=== PATIENT | female | born 1965 | race Caucasian/White ===

== ENCOUNTER → 2020-03-26 | Outpatient (CLI) | payer OTHER ==
--- NOTE | 2020-03-26 17:06 | CONS ---
CONSULTATION DATE OF SERVICE: 03/26/2020 This patient is a 54-year-old lady who has been evaluated in [facility] for obstructive sleep apnea-hypopnea syndrome. HISTORY OF PRESENT ILLNESS/SLEEP-WAKE EVALUATION: The patient was diagnosed with obstructive sleep apnea in 2008 in another institution. Since that time she has had no other sleep studies. She is on treatment with CPAP, but she feels sleepy when she wakes up in the morning, and she takes a nap at 3 or 4 p.m. Her sleep schedule is from 9:30 p.m. to 6 a.m. on weekdays and from midnight until 10 a.m. on weekends. No problems with falling asleep. Without CPAP, snoring is very loud. [place] Sleepiness Scale is significantly increased at 15. PAST MEDICAL HISTORY: Positive for hypertension, knee problems, hypothyroidism. PAST SURGICAL HISTORY: Status post recent right knee surgery, status post surgery for umbilical hernia in the past. MEDICATIONS: Levothyroxine, triamterene, meloxicam. SOCIAL HISTORY: Smoker, half pack a day for 20 years. Alcohol consumption occasional. FAMILY HISTORY: Hypertension, arthritis. REVIEW OF SYSTEMS: Tiredness and sleepiness during the day. PHYSICAL EXAMINATION: GENERAL: A pleasant lady without distress. VITAL SIGNS: BP 132/85, HR 92, RR 16, height 5 feet 3-1/2 inches, weight 339 pounds, BMI 59.1, temperature 98.3, oxygen saturation at room air 97%. HEENT: PERRLA, EOMI. Evaluation of oropharynx showed tongue protrudes midline. Low position of soft palate. NECK: Supple. No JVD. Thyroid is not palpable. Wide neck; 19-1/2 inches in circumference. LUNGS: Clear to percussion and to auscultation. Good air exchange. No wheezing or rhonchi. HEART: S1, S2 regular. No murmurs, gallops or rubs. ABDOMEN: Obese. EXTREMITIES: No clubbing or cyanosis. MANPOWER DEVELOPMENT ADVISOR: Awake, alert, and oriented X3. Cranial nerves 2 to 7 intact. There is no fasciculation or atrophy. noted. No focal deficits observed. IMPRESSION: 1. Obstructive sleep apnea-hypopnea syndrome. 2. Obesity, morbid, with body mass index of 59.1. 3. Hypertension. 4. Hypothyroidism. 5. Status post right knee surgery. 6. Status post umbilical hernia surgery in the past. PLAN: 1. Polysomnography for evaluation of patient's breathing during sleep. 2. CPAP/BiPAP titration if sleep study confirms obstructive sleep apnea-hypopnea syndrome. 3. Preferable position during sleep on the side. 4. No driving if patient feels any sleepiness. 5. I will see patient for follow up visit to explain results of testing and following plan. Thank you very much for referring this patient for consultation. Sincerely, Saul Curran MD, PhD, FAASM Diplomat of [employer] Supervisor [employer] [facility] [place] MMODL / IJN: [id number] /
== END | disposition home or self-care (01) ==
LOC: SLEEP 13:45
PROVIDERS: ATTEND Internal Medicine
DX: G47.33 Obstructive sleep apnea (adult) (pediatric) (principal); E66.01 Morbid (severe) obesity due to excess calories; I10 Essential (primary) hypertension; E03.9 Hypothyroidism, unspecified; F17.200 Nicotine dependence, unspecified, uncomplicated; Z68.43 Body mass index [BMI] 50.0-59.9, adult; Z98.890 Other specified postprocedural states; Z79.890 Hormone replacement therapy; Z79.1 Long term (current) use of non-steroidal anti-inflammatories (NSAID); Z79.899 Other long term (current) drug therapy
CPT/HCPCS: 99211

== ENCOUNTER → 2020-08-26 | Outpatient (CLI) | payer OTHER ==
--- NOTE | 2020-08-26 19:38 | SFUN ---
SLEEP CENTER FOLLOW UP NOTE DATE OF SERVICE: 08/26/2020 This patient is a 55-year-old lady who has been followed in Sleep Center for treatment of obstructive sleep apnea-hypopnea syndrome. Recently the patient had a polysomnogram which showed severe sleep apnea. Then she had titration and subsequently received a CPAP unit. She is able to use the CPAP equipment every night for the whole night. She feels better with the machine. She sleeps better and feels much better during the day. [place] Sleepiness Scale today is 2. I discussed results of her sleep studies with the patient in detail. I checked the patient's CPAP unit. CPAP pressure is 13 cm of water, usage 29/30 nights for more than 4 hours with average usage 7 hours per night. Leak is 6 L/minute, which is normal. Apnea-hypopnea index is 3.7, which is normal. MEDICATIONS: Meloxicam, levothyroxine. PHYSICAL EXAMINATION: GENERAL: A pleasant patient in no distress. VITAL SIGNS: BP 152/77, HR 84, RR 15, weight 328, temperature 97.5, oxygen saturation at room air 97%. HEENT: PERRLA, EOMI. Evaluation of oropharynx showed tongue protrudes midline. NECK: Supple. No JVD. Thyroid is not palpable. LUNGS: Clear to percussion and to auscultation. Good air exchange. No wheezing or rhonchi. HEART: S1, S2 regular. No murmurs, gallops or rubs. ABDOMEN: Obese. EXTREMITIES: No clubbing or cyanosis. HEAT TREATING OPERATOR: Awake, alert, and oriented X3. Cranial nerves 2 to 7 intact. There is no fasciculation or atrophy. noted. No focal deficits observed. IMPRESSION: 1. Severe obstructive sleep apnea-hypopnea syndrome; apnea-hypopnea index 48.7, under control with CPAP at 13 cm of water. Patient demonstrated 100% compliance with treatment, benefitting from treatment. 2. Hypertension. 3. Hypothyroidism. 4. Status post right knee surgery. 5. Status post umbilical hernia surgery in the past. PLAN: 1. Patient will continue to use PAP equipment every night for the whole night. 2. Sleep hygiene with regular time in bed for at least 7-1/2 to 8 hours. 3. Precautions related to driving. No driving if feeling sleepiness. 4. I will maintain all necessary prescription for PAP supplies including mask, tube, filters. 5. Watching weight. 6. No driving if feeling sleepiness. 7. Follow-up visit in 6 months or earlier if patient has any problems. Thank you very much for allowing me to participate in the management of your patient. Sincerely, Saul Curran MD, PhD, FAASM Diplomat of [employer] Family Medicine Physician Assistant [facility] [place] MMODL / IJN: [id number] /
== END | disposition home or self-care (01) ==
LOC: SLEEP 10:04
PROVIDERS: ATTEND Internal Medicine
DX: G47.33 Obstructive sleep apnea (adult) (pediatric) (principal); I10 Essential (primary) hypertension; E03.9 Hypothyroidism, unspecified; Z98.890 Other specified postprocedural states

== ENCOUNTER → 2021-09-09 | Outpatient (CLI) | payer OTHER ==
--- NOTE | 2021-09-09 20:22 | SFUN ---
SLEEP CENTER FOLLOW UP NOTE DATE OF SERVICE: 09/09/2021 INTERVAL HISTORY: 56-year-old lady has been followed in Sleep Center for treatment of obstructive sleep apnea-hypopnea syndrome. Last time I saw patient 1 year ago. The patient continues to use her CPAP equipment every night. No snoring with the machine. [place] Sleepiness Scale is 9. I checked the CPAP unit. Pressure is 13 cm of water. Usage is 30/30 nights. Average 29/30 nights. Leak is 6 L/minute. Apnea-hypopnea index only 2.7, which is absolutely normal. MEDICATIONS: Levothyroxine 275 mcg once a day. PHYSICAL EXAMINATION: GENERAL: Patient in no distress. BP 155/79, HR 94, RR 18, height 5 feet 2-3/4 inches, weight 333.2 pounds. The patient increased her weight on 5 pounds since last visit. BMI 59.5, temperature 97.2, oxygen saturation at room air 96%. HEENT: PERRLA, EOMI, evaluation of oropharynx showed tongue protrudes midline. NECK: Supple, no JVD. Thyroid is not palpable. LUNGS: Clear to percussion and to auscultation. Good air exchange. No wheezing or rhonchi. HEART: S1, S2 regular. No murmurs, gallops, or rubs. ABDOMEN: Soft and nontender. Bowel sounds are present. No organomegaly appreciated. EXTREMITIES: No clubbing or cyanosis. MULTI NEEDLE MACHINE OPERATOR: Awake, alert, and oriented X3. Cranial nerves 2 to 7 intact. There is no fasciculation or atrophy. noted. No focal deficits observed. IMPRESSION: 1. Severe obstructive sleep apnea-hypopnea syndrome AHI 48.7. The patient demonstrated great compliance with treatment benefitting from treatment, normal respiration on CPAP. 2. Hypertension. 3. Hypothyroidism. 4. Status post right umbilical hernia surgery in the past. 5. Status post right knee surgery. PLAN: 1. Change the air filter immediately. 2. The patient feels some discomfort with nasal mask, irritating upper part of her nose. Prescription was written to the nasal pillow mask Payne FX medium size, that should be more comfortable for the patient. 3. Patient will continue to use PAP equipment every night for the whole night. 4. Sleep hygiene with regular time in bed for at least 7-1/2 to 8 hours. 5. Precautions related to driving. No driving if feeling sleepiness. 6. I will maintain all necessary prescription for PAP supplies including mask, tube, filters. 7. Watching weight. 8. Follow-up visit in 6 months or earlier if patient has any problems. Thank you very much for allowing me to participate in management of your patient. Sincerely, Saul Curran MD, PhD, FAASM Diplomat of [employer] Sleep Medicine Board of [employer] Radiocommunications Technician [facility] [place] MMODL / IJN: [id number] /
== END ==
LOC: SLEEP 13:09
PROVIDERS: ATTEND Internal Medicine
DX: G47.33 Obstructive sleep apnea (adult) (pediatric) (principal); I10 Essential (primary) hypertension; E03.9 Hypothyroidism, unspecified; F17.200 Nicotine dependence, unspecified, uncomplicated; Z99.89 Dependence on other enabling machines and devices; Z98.890 Other specified postprocedural states; Z79.890 Hormone replacement therapy